=== PATIENT | female | born 1955 | race Caucasian/White ===

== ENCOUNTER → 2017-06-11 | Outpatient (CLI) | payer OTHER, SELFPAY ==
[~2017-06-11] MED LIST: ADULT LOW DOSE81 MG PO; CENTRUM SILVER1 EAC1 PO; CIPROFLOXACIN500 M1 PO; CLARITIN10 MG PO; FIORINAL CAPSUL1 CA1 PO; FLEXERIL PO; IBUPROFEN 600600 M1 PO; LOVENOX SUBQ; LYRICA100 MG PO; MS CONTIN15 MG PO; NORCO 5-325 TA1 EACH PO; OXAYDO7.5 MG PO; OXYCODONE HCL15 MG PO; PERCOCET 7.5-31 EAC1 PO; PERCOCET 7.5-31 EACH PO; PHENAZOPYRIDIN200 M2 PO; PRINIVIL; PRINZIDE 20-251 EACH PO; PYRIDIUM200 MG PO; SYNTHROID25 MCG PO; VIACTIV CAPLET1 EACH PO; VITAMIN B-121000 MCG PO; ZIAC; ZIAC 10-6.25 M1 EACH PO; ZOCOR40 MG PO; [UNRECOGNIZED DRUG - OTHER] PO
--- NOTE | 2017-06-14 15:31 | S ---
[address] [address] SURGICAL PATH RPT PROCEDURE Name: AMBAR SMITHMAITE Kwon [id number] Admission: 06/11/17 Date of : 55 Discharge: Report #: [id number] Path Case #: [id number] PATHOLOGY REPORT COLLECTION DATE: 06/11/2017 RECEIVED DATE: 06/11/2017 SUBMITTING PHYS: Dr. Zbigniew Tariq OTHER PHYS: Dr. Earnest Hopper SPECIMEN(S) RECEIVED: A.Left breast stereotactic biopsy for calcifications * * * * * * * * * * * * FINAL DIAGNOSIS: Left breast calcifications, stereotactic biopsy: - Benign breast tissue with usual ductal epithelial hyperplasia, mild chronic inflammation and coarse calcifications, negative for atypia. - See comment. COMMENT: Reviewed with Dr. Denisse Huff who agrees with the diagnosis. (CLARISSA:mm; 06/14/2017) PATHOLOGIST: David Andrew M.D. REPORT ELECTRONICALLY SIGNED BY: Davdi Andrew M.D. DATE/TIME: 06/14/2017 15:30 * * * * * * * * * * * * GROSS PATHOLOGY: Received in formalin labeled "Vanessa Smith," and additionally labeled on the requisition as, "left breast stereotactic biopsy for calcifications". Received are multiple needle cores of yellow-ferro fibrofatty tissue measuring 3.2 x 2.8 x 0.5 cm in aggregate dimensions. Also received is a plastic cassette containing multiple cores of yellow-ferro fibrofatty tissue measuring 2.5 x 2.4 x 0.5 cm in aggregate dimensions. The tissue in the cassette is transferred to cassette A1, and the remaining tissue is submitted in its entirety in cassette A2 and A3. The cold ischemic time is 3 minutes. The total formalin fixation time is 13 hours and 7 minutes. (CAA; 06/11/2017) CLINICAL HISTORY: Left breast stereotactic biopsy for calcifications INITIAL CPT CODE(S): [place] [address] SURGICAL PATH RPT PROCEDURE Name: VANESSA SMITH Room: [facility]#: [id number] Admission: 06/11/17 Date of : 55 Discharge: Report #: [id number] Path Case #: [id number] A; [id number] Professional services performed by [facility] at [address] [address] Technical services performed by [facility] at [address] [place] [address], [address], [place] [address]. [facility] [address] [place] [address] PHONE: [phone] DIRECTOR: Chris Ying M.D. * * * END OF REPORT * * *
== END | disposition home or self-care (01) ==
LOC: M.RAD 08:00
DX: N60.92 Unspecified benign mammary dysplasia of left breast (principal); Z79.82 Long term (current) use of aspirin; Z79.899 Other long term (current) drug therapy; Z79.891 Long term (current) use of opiate analgesic

== ENCOUNTER → 2017-07-30 | Outpatient (CLI) | payer OTHER ==
[2017-07-30 13:18] LABS: URINE BILIRUBIN NEGATIVE (Negative); URINE BLOOD NEGATIVE (Negative); URINE CLARITY CLEAR; URINE COLOR YELLOW; URINE GLUCOSE-RANDOM NEGATIVE (Negative); URINE KETONES NEGATIVE (Negative); URINE LEUKOCYTES-REFLEX NEGATIVE (Negative); URINE NITRITE-REFLEX NEGATIVE (Negative); URINE PROTEIN NEGATIVE (Negative); URINE SPECIFIC GRAVITY >= 1.030 (1.005-1.030); URINE UROBILINOGEN 0.2 E.U./dl (0.2-1.0)
== END ==
LOC: M.LAB 12:54
PROVIDERS: Obstetrics & Gynecology Gynecologic Oncology
DX: R30.0 Dysuria (principal)

== ENCOUNTER → 2017-08-03 | Outpatient (CLI) | payer OTHER, SELFPAY ==
--- NOTE | 2017-08-18 14:36 | PAINCON ---
[address] [address] PAIN MANAGEMENT CONSULTATION Name: LUISVANESSA E Room: [facility] RADHA HongErnst#: [id number] Admission: 08/03/17 Attend Phys: Mackenzie Rob MD Discharge: Date of : 55 Report #: [id number] THIS REPORT FOR: //name// CC: Guy Rob DATE OF SERVICE: 08/03/2017 HISTORY OF PRESENT ILLNESS: The patient is a 61-year-old female, who has been seen in the pain clinic. The patient is a new patient to me. She was followed by Dr. Zbigniew Bruner. She has also in the past seen Dr. Cliff Marcus. She has a long history of pain in low back as well as pain in her left knee. At this juncture, she has continued pain in the knee as well as low back area. She has had lumbar radiculopathy in the past. At this point, she is not having significant lumbar radicular pain. She finds that use of opioid medications of morphine and Percocet continued to be helpful. She still remains gainfully employed. Use of these medications and able her to continue to work. She notes that the pain in the low back, left knee and abdominal area are problematic. She recently had surgery in the abdominal area. She has a history of endometriosis. She had surgery by her ANODIZER. It was found that she has grade 1 cancer. She underwent a total abdominal hysterectomy and bilateral salpingo-oophorectomy and has been staged as 1A. She does need to have her knee replaced, but does not feel that she can have it done at this juncture. She is unable to take time off from work. The patient's has been recently hospitalized. He is a fabian. He ____ lion hunting. He noted some shortness of breath, epigastric pain and some vomiting. He returned home. He still had some chest pain and discomfort. He went to his primary. He was evaluated. 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 He underwent stent placement. This has caused her some consternation as well. ALLERGIES: No known drug allergies. CURRENT MEDICATIONS: Reviewed include aspirin 81 mg, Fiorinal 1 tab p.o. p.r.n., Ziac 10/6.25 mg once daily, calcium carbonate 1 tab daily, ibuprofen 600 mg t.i.d., Synthroid 25 mcg per day, lisinopril/hydrochlorothiazide 20/25 once daily, Loratadine 10 mg daily, MS Contin 15 mg t.i.d., oxycodone 7.5 mg q.i.d., simvastatin 40 mg daily, and multivitamin tablet daily. PAST MEDICAL HISTORY: 1. Hypertension. 2. Seizure disorder. 3. Hypercholesterolemia. 4. Degenerative joint disease involving the left knee, [place] [address] PAIN MANAGEMENT CONSULTATION Name: VANESSA SMITH Room: [facility] RADHA Reyna#: [id number] Admission: 08/03/17 Attend Phys: Mackenzie Rob MD Discharge: Date of : 55 Report #: [id number] x 2. 5. History of nephrolithiasis. 6. Recent surgery because of endometrial cancer, stage 1A. PAST SURGICAL HISTORY: 1. Knee surgery x 2 on the left side. 2. Wrist surgery. 3. Bilateral foot surgery. 4. Recent laparoscopic approach to the abdomen with conversion to a vertical incision for endometrial cancer. 5. Biopsy. SOCIAL HISTORY: The patient denies use of tobacco, denies use of IV drugs. She continues to work. REVIEW OF SYSTEMS: Questionnaire indicates low back pain, pain in the left knee, hypertension, hyperlipidemia with chronic pain. Other review of systems and 14 points were generally unremarkable. Pain impact score 35/70 indicating interference of daily activities secondary to pain clinic. PAIN CLINIC ASSESSMENT: 1. History of osteoarthritis involving the left knee. 2. Height 5 feet 5 inches, weight 267 pounds, BMI is 44. 3. VITAL SIGNS: Blood pressure 138/78, heart rate 78, respiratory rate 16, room air saturation is 90, and temperature 97.9. 4. Pain intensity 5/10. 5. Fall risk. The patient has not fallen in the last 3 months. 6. Blood thinner. The patient is not on a blood thinner 7. History of hypertension. The patient is being treated for hypertension. 8. Opioid greater than 6 months. The patient has signed a contract with the Pain Clinic and gets her opioid medication from only one source. 9. Risk assessment tool. 10. Functional assessment tool rated as 35/70. 11. Recreational drug use. The patient denies use of recreational drugs. Has had a recent drug testing on 05/10/2007 which showed positive findings of oxycodone and morphine, which are her current medications. 12. Tobacco: The patient denies use of tobacco. 13. Alcohol: The patient denies use of alcohol. PHYSICAL EXAMINATION: GENERAL: The patient is a well-developed obese white female, appears her stated age. ORIENTATION: The patient is alert and oriented x 3. AFFECT: Affect appears appropriate. HEENT: Normocephalic and atraumatic. Extraocular eye muscles present. The patient does have a disconjugate gaze with the left eye being the most [facility] [address] [place] [address] PAIN MANAGEMENT CONSULTATION Name: LUISVANESSA E Room: [facility]#: [id number] Admission: 08/03/17 Attend Phys: Mackenzie Rob MD Discharge: Date of : 55 Report #: [id number] functional. NECK: Without adenopathy or JVD. CHEST: Major muscle groups in the upper extremity are judged to be 5/5 for private sector executive strength and muscle strength. Deep tendon reflexes are +2 at the biceps bilaterally and trace at the brachioradialis and triceps. The patient's abdomen is protuberant. There are well healed scars. Five incision sites on the abdomen and a midline scar approximately 7 inches in the area of below the umbilicus. MUSCULOSKELETAL: The patient's alignment appears without significant kyphosis, scoliosis or lordosis. Lumbar flexion to 45 degrees that cause some discomfort with increased pain and discomfort in the left knee. The patient has some tenderness in the left sciatic outflow tract. Has had lumbar radiculopathy in the L4-L5 distribution. This is not problematic at this juncture. Has some pain and discomfort in the left knee with increased discomfort with flexion and extension of the knee area. Major muscle groups in the lower extremity judged as 5/5. Difficult to appreciate patellar knee flex on the left given the patient has some soreness in that area. Difficult to appreciate on the right ankle reflex is difficult to appreciate. Has tenderness over the left paraspinous musculature at the L4-L5, L5-S1 areas. Ankle clonus negative. ASSESSMENT: 1. Chronic lumbar pain/chronic pain. 2. Displacement of lumbar intervertebral disk with radiculopathy history. 3. Lumbosacral spondylosis with history of radiculopathy. 4. Morbid obesity. 5. Opioid dependence/treatment with complex medication management. 6. Chronic intractable pain. RECOMMENDATIONS: We discussed the treatment options with the patient. At this juncture, it appears that she is taking her medication as prescribed. She is not having any problems with her medications. She finds that they continue to be helpful. She is gainfully employed; without them she would not be able to stay as active. She states that she is thinking clearly. They are not having any untoward complications on her activities of daily living. She keeps her medications in a guarded area. She had a drug screen which showed that she did have appropriate medications in her system and is taking them as prescribed. The patient will be provided an additional 3 months of pain medication. She has some concerns regarding her . He recently had a myocardial infarct. She feels that this is per some additional strain on her at this juncture because of this. We have discussed the use of opioid medications. We discussed the problems of opioid medications in the news at this juncture. We recommend and explained to the patient that she could only get her medications at one area. We will provide her medications. She will call us if she has any problems with her medications. She feels that they may be making some changes in her insurance company regarding her morphine. She will call us [place] [address] PAIN MANAGEMENT CONSULTATION Name: VANESSA SMITH Room: [facility]#: [id number] Admission: 08/03/17 Attend Phys: Mackenzie Rob MD Discharge: Date of : 55 Report #: [id number] new requirements. We would like to thank you for letting us participate in her care. We hope she continues to improve. <ELECTRONICALLY SIGNED> By: Mackenzie Rob MD 08/18/17 1436 1003 1739N. Marco Rob MD /nt
== END ==
LOC: M.PC 08-02 08:00
DX: M51.16 Intervertebral disc disorders with radiculopathy, lumbar region (principal); M47.27 Other spondylosis with radiculopathy, lumbosacral region; I10 Essential (primary) hypertension; E78.00 Pure hypercholesterolemia, unspecified; F11.90 Opioid use, unspecified, uncomplicated; Z79.899 Other long term (current) drug therapy

== ENCOUNTER → 2017-10-26 | Outpatient (CLI) | payer OTHER, SELFPAY ==
--- NOTE | 2017-11-17 14:05 | PAINCON ---
[address] [address] PAIN MANAGEMENT CONSULTATION Name: LUISVANESSA E Room: [facility] EVAN GelyErnst#: [id number] Admission: 10/26/17 Attend Phys: Mackenzie Rob MD Discharge: Date of : 55 Report #: [id number] THIS REPORT FOR: //name// CC: Guy Rob DATE OF SERVICE: 10/26/2017 FOLLOWUP HISTORY: Low back pain, left and right knee pain and pain from the abdominal incision from 07/19/2017. The patient is a 61-year-old female who has been followed in the Pain Clinic because of chronic pain involving her knees. She also has a history of lumbar radiculopathy. She has been treated with opioid medications to help control her pain. She finds that the opioid medications, Morphine and Percocet continued to be helpful. She remains gainfully employed. Feels that her medications enable her to stay employed. Has pain in the low back, left knee as well as continues to have some abdominal pain. As you may recall, she had some abdominal surgery in July of this year. This was secondary to endometriosis. Grade 1 cancer was found. Since she has had a total abdominal hysterectomy and bilateral salpingo-oophorectomy, she continues to heal. She is contemplating the possibility of knee surgery. Unfortunately, at this time, she is unable to take off from work to have this done. Her is getting better. As you may recall, he was found to have coronary artery disease while hunting. Had 3 vessels 1, which was 99% blocked. Has been stented. ALLERGIES: No known drug allergies. CURRENT MEDICATIONS: Aspirin 81 mg, Fiorinal 1 tab p.o. p.r.n., Ziac 10/625 one daily, calcium carbonate 1 tab daily, ibuprofen 600 mg t.i.d., Synthroid 25 mcg, lisinopril/hydrochlorothiazide 20/25 once daily, loratadine 10 mg daily, MS Contin 15 mg t.i.d., oxycodone 7.5 mg q.i.d., simvastatin 40 mg daily, multivitamin tablet daily. PAIN CLINIC ASSESSMENT: 1. History of osteoarthritis involving her left knee. 2. Height 5 feet 5 inches, weight 271 pounds, BMI is 45. 3. Vital signs: Blood pressure 146/29, heart rate 58, respiratory rate 16, room air saturation 97%, temperature 98.3. 4. Pain intensity 5/10. 5. Fall risk. The patient has not fallen in the last 3 months. 6. Blood thinner. The patient is not on a blood thinning medication. 7. History of hypertension. The patient [place] [address] PAIN MANAGEMENT CONSULTATION Name: VANESSA SMITH Room: [facility]#: [id number] Admission: 10/26/17 Attend Phys: Mackenzie Rob MD Discharge: Date of : 55 Report #: [id number] 8. Opioids greater than 6 months. The patient has a contract signed with Pain Clinic, gets her medication from only one source. 9. Risk assessment tool. 10. Functional assessment tool . 11. Recreational drug use. The patient denies use of recreational drug use. 12. Tobacco: The patient denies use of tobacco. 13. Alcohol: The patient denies use of alcoholic beverages. PHYSICAL EXAMINATION: GENERAL: The patient is a well-developed, obese female. She appears her stated age. Orientation, she is alert and oriented x 3. Affect appears appropriate. Speech is fluent. HEENT: Normocephalic, atraumatic. Extraocular eye muscles intact. Sclerae not injected. Hearing within normal limits. Mucous membranes are moist. NECK: Without adenopathy or JVD. CHEST: Major muscle in the upper extremity judged to be 5/5 for turn operator strength and muscle strength. ABDOMEN: The patient's abdomen is protuberant. Healing/well healed scars, 5 incision sites all in the abdomen and a midline scar approximately 7 cm in the area below the umbilicus. MUSCULOSKELETAL: The patient's alignment appears without significant kyphosis, scoliosis or lordosis. Lumbar flexion, extension caused some discomfort in the low back area as well as in the left knee. The patient has some left sciatic outflow tenderness. The patient has some difficulty within the left patellar area with flexion of her knee. Soreness is noted. ASSESSMENT: 1. Chronic lumbar pain. 2. Chronic knee pain. 3. Displacement of lumbar intervertebral disk with radiculopathy history. 4. Lumbosacral spondylosis with history of radiculopathy. 5. Morbid obesity. 6. Opioid dependence/treatment with complex medication management. 7. Chronic intractable pain. RECOMMENDATIONS: We discussed treatment options with the patient. Risks and benefits of continued use of opioid medications were discussed. The patient has been watching the media. She is aware that opioids can be addictive. She is aware that these medications can become less effective over time secondary to tolerance. Overall, she feels that things are going reasonably well. Feels that the Percocet, morphine are beneficial and enable her to stay gainfully employed. Takes her medication as prescribed. Keeps her medications in a controlled environment. She would like to have her medications renewed at this juncture. We will renew her medications and a script for oxycodone 7.5 mg 1 p.o. q.i.d. has been written as well as for morphine 15 mg 1 [place] [address] PAIN MANAGEMENT CONSULTATION Name: VANESSA SMITH Room: [facility]#: [id number] Admission: 10/26/17 Attend Phys: Mackenzie Rob MD Discharge: Date of : 55 Report #: [id number] been written. We would like to thank you for letting us participate in her care. We hope she continues to improve. <ELECTRONICALLY SIGNED> By: Mackenzie Rob MD 11/17/17 1405 0910 1208N. Marco Rob MD /nt
== END ==
LOC: M.PC 02:15
DX: M47.27 Other spondylosis with radiculopathy, lumbosacral region (principal); M51.16 Intervertebral disc disorders with radiculopathy, lumbar region; G89.4 Chronic pain syndrome; M54.5 Low back pain; E66.01 Morbid (severe) obesity due to excess calories; M25.562 Pain in left knee; M25.561 Pain in right knee; F11.20 Opioid dependence, uncomplicated; Z79.899 Other long term (current) drug therapy

== ENCOUNTER → 2018-01-18 | Outpatient (CLI) | payer OTHER ==
--- NOTE | 2018-01-21 08:37 | PAINCON ---
[address] [address] PAIN MANAGEMENT CONSULTATION Name: VANESSA SMITH Room: [facility] GelyErnst#: [id number] Admission: 01/18/18 Attend Phys: Mackenzie Rob MD Discharge: Date of : 55 Report #: [id number] THIS REPORT FOR: //name// CC: Guy Rob DATE OF SERVICE: 01/18/2018 CHIEF COMPLAINT: Pain in the low back, knees and in the area of the abdominal incision. FOLLOWUP HISTORY: The patient is a 62-year-old female who has been followed in the pain clinic because of pain and discomfort. She has pain in her low back, knees and continues to have some discomfort since the surgery in 2018. She had surgery on 07/19/2017. She feels that the back pain is somewhat under control. She is no longer having as much abdominal pain. Her left knee continues to be painful. She places ice on the left knee. She finds that this is beneficial. Rates her pain as a 5/10. Feels that her oxycodone 7.5 is helpful. Finds that morphine 15 mg q.8h. is helpful as well. She has had no complication from the medication. The patient has noted a lump in her right neck area. As you recall, she had stage IA uterine cancer. She has noticed a lump about the size of a 25-cent piece which is easily movable on the right side of her neck. It is not painful. She is not sure how long it has been there. She has talked with her primary and is about to have it evaluated. Possibility of a biopsy exist. The patient has another complication. Her has had a history of cardiac disease. He underwent a stent placement last year. He had an NC diagnosed at that time. Recently, he started noticing some numbness and tingling in his left arm. He was taken to the hospital last night. He is in the hospital at this juncture being worked up. The patient does note some increased stress because of all of these problems. Her has a 3-vessel problem. ALLERGIES: No known drug allergies. CURRENT MEDICATIONS: Aspirin 81 mg, Fiorinal 1 tablet p.o. p.r.n., Ziac 10/625, calcium carbonate 1 tablet, ibuprofen 600 mg t.i.d., Synthroid 25 mcg, lisinopril/hydrochlorothiazide 20/25 once daily, Loratadine 10 mg daily, MS Contin 15 mg t.i.d., oxycodone 7.5 mg q.i.d., simvastatin 40 mg daily, multivitamin tablet daily. PAIN CLINIC ASSESSMENT: 1. The patient has a history of osteoarthritis involving her left knee. 2. Height 5 feet 5 inches, weight 269 pounds, BMI is 44. 3. Vital signs: Blood pressure 178/97, heart rate 62, respiratory rate 16, room air saturation 95%, temperature 98.4. 4. Pain intensity 5/10. [place] [address] PAIN MANAGEMENT CONSULTATION Name: VANESSA SMITH [facility] [id number] Admission: 01/18/18 Attend Phys: Mackenzie Rob MD Discharge: Date of : 55 Report #: [id number] 5. Fall risk. The patient has not fallen in the last 3 months. 6. Blood thinner. The patient is on her blood thinning medication. 7. Hypertension. The patient is being treated for hypertension. 8. Opioid greater than 6 weeks. The patient is to receive her medications through the pain clinic. She receives the opioids from one source. 9. Risk assessment tool. 10. Functional assessment tool . 11. Recreational drug use. The patient denies use of recreational drugs. 12. Tobacco: The patient denies use of tobacco. 13. Alcohol: The patient denies use of alcoholic beverages. PHYSICAL EXAMINATION: GENERAL: The patient is a well-developed, obese female, appears her stated age. She is alert and oriented x 3. Her affect is appropriate in spite of her problems. Speech is fluent. HEENT: Normocephalic, atraumatic. Extraocular muscles show the right eye with a disconjugate gaze. Sclerae are not injected. Hearing is within normal limits. Mucous membranes are moist. NECK: With adenopathy on the right side without JVD. CHEST: Muscles in the upper extremity judged to be 5/5 with limerock tower loader strength. ABDOMEN: The patient's abdomen is protuberant. Well healing scar. MUSCULOSKELETAL: Without significant kyphosis, scoliosis or lordosis. Lumbar flexion, extension within normal limits. The patient notes pain and discomfort in her left knee. The patient has a left sciatic outflow tender area. Has some pain and discomfort in the area of the left patellar with flexion of her knee. Soreness is noted. ASSESSMENT: 1. Chronic lumbar pain. 2. Chronic knee pain. 3. Note of a freely movable mass in the right neck area, nontender - will be evaluated by primary. 4. Morbid obesity. 5. Lumbosacral spondylosis with history of radiculopathy. 6. Opioid dependence, treated with complex medical management. 7. Chronic intractable pain. RECOMMENDATIONS: We discussed treatment options with the patient. We will continue with her current medical regimen. She will follow up with her primary in regards to the lump in the right side of her neck. She will continue with her opioid medications. She and I have talked about use of opioid medications and their effectiveness over time, which can diminish. Overall, she feels that things are going reasonably well, would like to continue her medications and has had no problems with them. Keeps her medications in a guarded area. A script for her medications have been rewritten. She [place] [address] PAIN MANAGEMENT CONSULTATION Name: LUISVANESSA E Room: [facility]#: [id number] Admission: 01/18/18 Attend Phys: Mackenzie Rob MD Discharge: Date of : 55 Report #: [id number] We would like to thank you for letting us participate in her care. We hope she continues to improve. <ELECTRONICALLY SIGNED> By: Mackenzie Rob MD 01/21/18 0837 0926 1738N. Marco Rob MD /nt
== END ==
LOC: M.PC 04:47
DX: M47.27 Other spondylosis with radiculopathy, lumbosacral region (principal); E66.01 Morbid (severe) obesity due to excess calories; G89.4 Chronic pain syndrome; M25.561 Pain in right knee; F11.20 Opioid dependence, uncomplicated; Z79.899 Other long term (current) drug therapy

== ENCOUNTER → 2018-04-12 | Outpatient (CLI) | payer OTHER ==
--- NOTE | 2018-04-20 16:38 | PAINCON ---
[address] [address] PAIN MANAGEMENT CONSULTATION Name: LUISVANESSA E Room: [facility] RADHA HongErnst#: [id number] Admission: 04/12/18 Attend Phys: Mackenzie Rob MD Discharge: Date of : 55 Report #: [id number] THIS REPORT FOR: //name// CC: Guy Rob DATE OF SERVICE: 04/12/2018 FOLLOWUP HISTORY: "The knot on my right neck was squamous cell cancer, I am going to undergo chemotherapy and radiation." FOLLOWUP HISTORY: The patient is a 62-year-old female who has been followed in the Pain Clinic because of chronic pain. She has pain in her low back. She has knee pain. She notes that she has had some discomfort since her surgery in 2018. She was out walking in the area. She was on a porsche pathway. She feels like she twisted her knee. She is having pain and discomfort, which has increased. She is walking with limp at this juncture. The patient has been found to have squamous cell carcinoma. She has undergone a number of evaluations, which consisted of CT, MRI, bronchial scoping and other exams in an effort to find the original source of cancer. She states that they have not been able to find a primary. She describes it as an occult primary. She is somewhat disconcerted that she has had her second cancer within a couple of years. She feels that the oxycodone medication is helpful. She feels that morphine is helpful. She is taking her medication as prescribed. She states that she will be undergoing chemotherapy with cisplatin and following that she will undergo 33 treatments of radiation to the affected area. As you may recall, she has had stage 1A uterine cancer. As you may recall as well, her has a history of cardiac disease. He has undergone stent placements. He had an WA and was diagnosed with 3-vessel disease. ALLERGIES: No known drug allergies. CURRENT MEDICATIONS: Aspirin 81 mg, Fiorinal 1 tablet p.o. p.r.n., Ziac 10/625, calcium carbonate 1 tablet, ibuprofen 600 mg t.i.d., Synthroid 25 mcg, lisinopril/hydrochlorothiazide 20/25 daily, loratadine 10 mg daily, morphine/MS Contin 15 mg t.i.d., oxycodone 7.5 mg q.i.d., simvastatin 40 mg daily, multivitamin daily. PAIN CLINIC ASSESSMENT/PQRS: 1. The patient has a history of osteoarthritis involving her left knee. She recently twisted her right knee and is having pain. The patient is not being treated for rheumatoid arthritis. 2. Height 5 feet 5 inches, weight 269 pounds, BMI is 44.7. [place] [address] PAIN MANAGEMENT CONSULTATION Name: VANESSA SMITH [id number] Admission: 04/12/18 Attend Phys: Mackenzie Rob MD Discharge: Date of : 55 Report #: [id number] 3. Vital signs: Blood pressure 148/83, heart rate 56, respiratory rate 16, room air saturation is 96%, temperature 97.6. 4. Pain intensity: 5/10. 5. Fall risk: The patient has not fallen in the last 3 months. She twisted her ankle while walking with a cane about 3 weeks ago. 6. Blood thinner: The patient is not on a blood thinning medication. 7. Hypertension: The patient is being treated for hypertension. 8. Opioids greater than 6 weeks: The patient receives her medication from one source, the [facility]. 9. Risk assessment tool: Low for opioid use. 10. Functional assessment tool: 35/70. 11. Recreational drug use: The patient denies recreational drugs. 12. Tobacco: The patient denies use of tobacco. 13. Alcohol: The patient denies use of alcoholic beverages. PHYSICAL EXAMINATION: GENERAL: The patient is a well-developed, well-nourished, obese white female. She appears her stated age. She is alert and oriented x 3. Her affect is appropriate. Speech is fluent. HEENT: Normocephalic, atraumatic. Extraocular eye muscles shows that the right eye has a disconjugate gaze. Sclerae nonicteric. Hearing is within normal limits. Mucous membranes are moist. NECK: Without adenopathy. She did have a nodule on the right side, which has been determined to be squamous cell cancer. CHEST: Clear to auscultation, without rales or rhonchi. The patient is somewhat congested and coughing. ABDOMEN: Nontender, protuberant. Well-healed scars. MUSCULOSKELETAL: Without significant scoliosis, kyphosis, or lordosis. Lumbar extension within normal limits. Muscle strength in the lower extremities is judged to be 5/5 on the left side and 4+/5 on the right side. The patient walks with an antalgic gait because of pain and discomfort on the right side. She notes some soreness in the lateral side of her right knee in the area of the lateral collateral ligament. ASSESSMENT: 1. Chronic lumbar pain. 2. Recent finding of squamous cell carcinoma, right side of neck. 3. History of stage 1A uterine cancer, treated. 4. Chronic knee pain. 5. Morbid obesity. 6. Lumbosacral spondylosis with history of radiculopathy. 7. Opioid dependence, treated with complex medical management to help control pain. 8. Chronic intractable pain. RECOMMENDATIONS: We discussed treatment options with [place] [address] PAIN MANAGEMENT CONSULTATION Name: VANESSA SMITH [facility] [id number] Admission: 04/12/18 Attend Phys: Mackenzie Rob MD Discharge: Date of : 55 Report #: [id number] continue with her current medications. As you can imagine, she is somewhat disheartened to find that she has a second cancer within 2 years. It involves the right neck. She is going to undergo treatment with radiation and chemotherapy. The patient is scheduled to go today to have a PICC line placed. She will call us if she has any concerns. We would like to thank you for letting us participate in her care. We hope she continues to improve. Hopefully, her cancer treatment goes successful and proceeds without complication. <ELECTRONICALLY SIGNED> By: Mackenzie Rob MD 04/20/18 [id number] [id number]. Marco Rob MD /nt
== END ==
LOC: M.PC 08:00
DX: M47.27 Other spondylosis with radiculopathy, lumbosacral region (principal); G89.4 Chronic pain syndrome; E66.09 Other obesity due to excess calories; M25.569 Pain in unspecified knee; C44.42 Squamous cell carcinoma of skin of scalp and neck; Z79.891 Long term (current) use of opiate analgesic

== ENCOUNTER → 2018-07-05 | Outpatient (CLI) | payer OTHER ==
[~2018-07-05] MED LIST changes: +BACTRIM DS TAB1 EACH PO; +COMPAZINE10 MG PO; +ZOFRAN ODT4 MG DISSOLVE
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
== END ==
LOC: M.PC 04:52
DX: M54.5 Low back pain (principal); G89.4 Chronic pain syndrome; M25.569 Pain in unspecified knee; M47.26 Other spondylosis with radiculopathy, lumbar region; F11.20 Opioid dependence, uncomplicated; C44.92 Squamous cell carcinoma of skin, unspecified; E66.9 Obesity, unspecified; Z85.42 Personal history of malignant neoplasm of other parts of uterus

== ENCOUNTER → 2018-09-27 | Outpatient (CLI) | payer OTHER ==
[~2018-09-27] MED LIST changes: +DEPAKOTE 250MG250 M1 PO
--- NOTE | 2018-09-29 12:05 | PAINCON ---
[address] [address] PAIN MANAGEMENT CONSULTATION Name: LUISVANESSA E Room: [facility] GelyErnst#: [id number] Admission: 09/27/18 Attend Phys: Mackenzie Rob MD Discharge: Date of : 55 Report #: [id number] THIS REPORT FOR: //name// CC: Guy Rob DATE OF SERVICE: 09/27/2018 CHIEF COMPLAINT: "Here for medication renewal." HISTORY: The patient is a 62-year-old female who has been followed in the pain clinic. She has chronic pain involving her left knee. There is wpbz-[id number] involvement. As you recall, she was found to have squamous cell carcinoma involving her right neck. She has undergone treatment with chemotherapy as well as with radiation. She, at this point is cancer free. She does have a feeding tube in place. She is under speech therapy to help with swallowing. She has had some problems with her kidneys that she was taken off her diuretic. She did have some problems with her shoulder, but has been given some exercises, which have been helpful. She has had some twitching symptoms, which were similar to petit mal seizures, and has been started on Depakote. Because of the shoulder and neck pain she has undergone physical therapy and found that this has been beneficial. She has returned today for renewal of her medications. She feels that her pain is about 50% improved with use of medications. Rates her pain as a 5/10. ALLERGIES: No known drug allergies. CURRENT MEDICATIONS: Aspirin 81 mg, Fiorinal tablets 1 p.o. p.r.n., Ziac 10 mg/625, calcium carbonate tablets, ibuprofen has been used in the past, Synthroid 25 mcg, lisinopril/hydrochlorothiazide has been changed, loratadine 10 mg, morphine 15 mg t.i.d., oxycodone 7.5 mg q.i.d., simvastatin 40 mg, multivitamins, Bactrim, Zofran, Compazine, and Depakote. PAIN CLINIC ASSESSMENT/PQRS: 1. The patient has history of left knee osteoarthritis. She has not been treated for rheumatoid arthritis. 2. Height 5 feet 5 inches, weight 239 pounds, BMI is 40.0. 3. Vital signs: Blood pressure 157/92, heart rate 78, respiratory rate 16, room air saturation 97%. Temperature 98.2. 4. Pain intensity: 5/10. 5. Blood thinner. The patient is not on a blood thinning medication. 6. Hypertension. The patient is being treated for hypertension. 7. Opioid greater than 6 weeks. The patient receives her medications [facility]. 8. Risk assessment tool, low for opioid use. 9. Functional assessment tool 35/70. [place] [address] PAIN MANAGEMENT CONSULTATION Name: VANESSA SMITH Room: [facility]#: [id number] Admission: 09/27/18 Attend Phys: Mackenzie Rob MD Discharge: Date of : 55 Report #: [id number] 10. Recreational drug use. The patient denies use of recreational drugs. 11. Tobacco: The patient denies use of tobacco. 12. Alcohol: The patient denies use of alcoholic beverages. PHYSICAL EXAMINATION: GENERAL: The patient is well-developed, well-nourished white female. She is alert and oriented x 3. She does appear to be doing reasonably well. HEENT: Normocephalic, atraumatic. Extraocular eye muscles shows the patient does has a disconjugate gaze. Sclerae nonicteric. Hearing is within normal limits. Mucous membranes are moist. The patient has some decreased saliva secondary to radiation. NECK: Right adenopathy, treated. CHEST: Clear to auscultation without rales. ABDOMEN: Nontender. The patient does have a feeding tube in place. EXTREMITIES: Upper extremity; the patient's upper extremity muscle strength is judged to be 5/5 and the lower extremity muscle strength is judged to be 5-/5. The patient has pain in the left knee. IMPRESSION: 1. Chronic left knee pain, bytq-go-rybv. 2. Squamous cell carcinoma, status post radiation chemotherapy, cisplatin 35 radiation treatments. 3. History of stage 2, 1A uterine cancer, treated. 4. Chronic knee pain. 5. Morbid obesity. 6. Lumbar spondylosis with history of radiculopathy. 7. Opioid dependence, treated with complex medical management help control pain. 8. Chronic intractable pain. RECOMMENDATIONS: We discussed treatment options with the patient. At this juncture, she feels her medications are working reasonably well. She would like to continue with their use. She does not having any untoward side effects. A script for oxycodone 7.5 mg 1 p.o. q.i.d. has been rewritten. The patient will also continue with morphine 15 mg 1 p.o. t.i.d. We would like to thank you for letting us participate in her care. We hope she continues to improve. <ELECTRONICALLY SIGNED> By: Mackenzie Rob MD 09/29/18 1205 [id number]. Marco Rob MD /kt
== END ==
LOC: M.PC 04:54
DX: M17.12 Unilateral primary osteoarthritis, left knee (principal); G89.29 Other chronic pain; M47.26 Other spondylosis with radiculopathy, lumbar region; I10 Essential (primary) hypertension; E66.8 Other obesity; Z85.89 Personal history of malignant neoplasm of other organs and systems; Z92.3 Personal history of irradiation; Z79.82 Long term (current) use of aspirin; Z79.899 Other long term (current) drug therapy; Z79.891 Long term (current) use of opiate analgesic; Z68.41 Body mass index [BMI] 40.0-44.9, adult

== ENCOUNTER → 2018-10-13 | Outpatient (CLI) | payer OTHER | LOC: M.RAD 12:52 | DX: Z12.31 Encounter for screening mammogram for malignant neoplasm of breast (principal) ==

== ENCOUNTER → 2018-12-20 | Outpatient (CLI) | payer OTHER ==
--- NOTE | ~2018-12-20 | PAINCON ---
[address] [address] PAIN MANAGEMENT CONSULTATION Name: VANESSA SMITH Room: [facility] RADHA Reyna#: [id number] Admission: 12/20/18 Attend Phys: Mackenzie Rob MD Discharge: Date of : 55 Report #: [id number] THIS REPORT FOR: //name// CC: Guy Rob DATE OF SERVICE: 12/20/2018 CHIEF COMPLAINT: Here for medication management and continued right shoulder pain. HISTORY: The patient is a 62-year-old female who has been followed in the pain clinic because of chronic pain. She has pain with ntfj-hf-vqab involvement in her knees. This is on the left side and has been chronic. She has some low back discomfort as well. Has some discomfort in her left knee as well. As you may recall, was found to have squamous cell carcinoma. This involves her right neck. She has undergone chemotherapy and radiation. She has been cancer free at this point. 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 This involves her neck and causes her to have some significant swelling in the lower portion of her neck. She states it is less when she wakes up. She was involved with a therapist who is massaging and doing all that they can to decrease this problem. She wears a compression vest as well as a head piece. They are trying to find out the best way to control this discomfort. She feels that her muscles are tight. This particularly on the right side. She has continued with physical therapy. She feels that is helpful. She is going to go to physical therapy. She is being treated by her occupational therapist. She has been monitoring her blood pressure. Because of dehydration and hospitalization, she was taken off her medications earlier this year. She does take it on occasion. 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 She is on Depakote. She feels overall that pain is about 50% improved with her current medical regimen. ALLERGIES: No known drug allergies. CURRENT MEDICATIONS: Aspirin 81 mg, Fiorinal tablets 1 p.o. p.r.n., Ziac 10 mg/625, calcium carbonate tablets, ibuprofen p.o. has been used in the past, Synthroid 25 mcg, lisinopril/hydrochlorothiazide has been used in the past, loratadine 10 mg, morphine 15 mg t.i.d., oxycodone 7.5 mg q.i.d., simvastatin 40 mg, multivitamins, Bactrim, Zofran, Compazine, Depakote. PAIN CLINIC ASSESSMENT/PQRS: 1. The patient has a history of left knee osteoarthritis. [id number]-[id number]. She is not being treated for rheumatoid arthritis. 2. Height 5 feet 5 inches, weight 228 pounds, BMI is 38. 3. VITAL SIGNS: Blood pressure 160/79, heart rate 63, respiratory rate 16, room air saturation 97%, temperature 98.4. 4. Pain intensity is 5/10. [place] [address] PAIN MANAGEMENT CONSULTATION Name: LUISVANESSA E Room: [facility]#: [id number] Admission: 12/20/18 Attend Phys: Mackenzie Rob MD Discharge: Date of : 55 Report #: [id number] 5. Fall history: The patient has not fallen in the last 3 months. 6. Blood thinner. The patient is not on a blood thinning medication. 7. Opioid greater than 6 weeks. The patient [facility]. 8. Risk assessment tool, low for opioid use. 9. Functional assessment tool . 10. Recreational drug use. The patient denies. 11. Tobacco: The patient denies use of tobacco. 12. Alcohol: The patient denies use of alcoholic beverages. PHYSICAL EXAMINATION: GENERAL: The patient is a well-developed, well-nourished white female. She is somewhat obese. She is alert and oriented x 3. Her affect is appropriate. Speech is fluent. HEAD, EYES, EARS, NOSE, AND THROAT: Normocephalic, atraumatic. Extraocular eye muscles intact. The patient has somewhat of a disconjugate. Does note some significant swelling, which caused the production of a significant double chin. NECK: The patient notes some swelling in the area because of the lymphedema. CHEST: Clear to auscultation. EXTREMITIES: the patient has pain and discomfort in the right neck area, right shoulder. Upper extremity, the patient's muscle strength is judged to be 4+/5 on the right and 5/5 on the left. Lower extremity muscle strength judged to be 5/5 for the major muscle groups in the lower extremity. The patient has pain in her left knee as well as the right knee has some low back discomfort. IMPRESSION: 1. Chronic knee pain, gcvq-ji-pjkb. 2. Squamous cell carcinoma, status post radiation and cisplatin #35 radiation treatments -- lymphedema in the neck. 3. History of stage II 1A uterine cancer treated. 4. Chronic knee pain. 5. Morbid obesity. 6. Lumbar spondylosis with history of radiculopathy. 7. Opioid dependence. The patient is treated with complex medical management to help control her pain. 8. Chronic intractable pain. RECOMMENDATIONS: We discussed treatment options with the patient. Risks and benefits of opioid medication were discussed. They include the possibility of development of tolerance with long-term use. We have discussed the possibility of dependency. The patient does not feel these medications are being problematic at this juncture. They appeared and are helping her to live a more active life. Rates her pain about 50% improved. We will continue with her medications. A script for her medications: Morphine sulfate 15 mg 1 p.o. t.i.d. has been written as well as oxycodone 7.5 mg one p.o. every 6 [place] [address] PAIN MANAGEMENT CONSULTATION Name: VANESSA SMITH Room: [facility]#: [id number] Admission: 12/20/18 Attend Phys: Mackenzie Rbo MD Discharge: Date of : 55 Report #: [id number] of 4 tablets to have been written as well. The patient will call us if she has any concerns. Overall, things are going reasonably well. She feels are going as well as could be expected. We would like to thank you for letting us to participate in her care. We hope continue to treat her with her complex medical management given her cancer history. By: [id number] 1500N. Marco Rob MD /PMT
== END ==
LOC: M.PC 05:13
DX: Z76.0 Encounter for issue of repeat prescription (principal); M17.12 Unilateral primary osteoarthritis, left knee; E66.01 Morbid (severe) obesity due to excess calories; M47.816 Spondylosis without myelopathy or radiculopathy, lumbar region; G89.4 Chronic pain syndrome; Z79.82 Long term (current) use of aspirin; Z79.899 Other long term (current) drug therapy; Z79.891 Long term (current) use of opiate analgesic

== ENCOUNTER → 2019-03-14 | Outpatient (CLI) | payer OTHER ==
[~2019-03-14] MED LIST changes: +PRINIVIL20 MG PO; +SYNTHROID25 MC1 PO; -SYNTHROID25 MCG PO; +VITAMIN D5000 UNIT PO
--- NOTE | 2019-03-29 09:09 | PAINCON ---
[facility] [address] [place] [address] PAIN MANAGEMENT CONSULTATION Name: VANESSA SMITH Room: [facility] RADHA CarJulia#: [id number] Admission: 03/14/19 Attend Phys: Mackenzie Rob MD Discharge: Date of : 55 Report #: [id number] THIS REPORT FOR: //name// CC: Guy Rob DATE OF SERVICE: 03/14/2019 CHIEF COMPLAINT: Here for medication renewal. HISTORY: The patient is a 63-year-old female who has been followed in the pain clinic because of chronic pain. She has pain involving her right shoulder. She also has low back pain and left knee pain. The patient has been working a lot with extra activities. Her job is relocating from [place], [place] to [place]. As a result of that, constant work she has noticed a worsening of her pain. They do not have chairs in the area. Consequently standing on her feet all day have has been more problematic. She has had the feeding tube removed. This has been closing slowly. The tube was removed in November. It is finally getting to the point where it is closing. It did reopen. She is slated to see Interventional Radiology and for evaluation in the next few days. Feels that her medications of morphine and oxycodone are helpful. She was started on vitamin D, approximately 50,000 units by her physician. Feels that overall things about 50% improved with her current medical regimen. Factors that exacerbate her discomfort are sitting, standing, climbing stairs, bending, and lifting. Also, she has noticed that the new facility is cold in area. She is wearing a jacket at work. As you may recall, she has undergone treatment for squamous cell carcinoma. ALLERGIES: No known drug allergies. CURRENT MEDICATIONS: Aspirin 81 mg, Fiorinal for headaches, Depakote DR 250 mg t.i.d., ibuprofen p.r.n., Synthroid 50 mcg daily, morphine sulfate 15 mg, Zofran 4 mg p.r.n. nausea, oxycodone 7.5 mg tablets 4 times daily, Compazine 10 mg t.i.d., Bactrim-DS in the past and the feeding tube. PAIN CLINIC ASSESSMENT AND PQRS: 1. The patient has a history of left knee osteoarthritis. With pnvu-vw-ivih discomfort. She is not being treated for rheumatoid arthritis. 2. Height 5 feet 5 inches, weight 223 pounds, BMI is 37.0. 3. Vital signs: Blood pressure 186/82, heart rate is 62, respiratory rate 16, room air saturation 99%, temperature 98.5. 4. Pain intensity 6/10. 5. Fall history: The patient has not fallen in the last 3 months. 6. Blood thinner. The patient is not on a blood thinning medication. 7. Opioids greater than 6 weeks. The patient received medication from one source, [place] [address] PAIN MANAGEMENT CONSULTATION Name: AMBAR SMITHRI Cher [facility] [id number] Admission: 03/14/19 Attend Phys: Mackenzie Rob MD Discharge: Date of : 55 Report #: [id number] 8. Risk assessment tool, low for opioid use. 9. Functional assessment tool 35/. 10. Recreational drug use. The patient denies. 11. Tobacco: The patient denies use of tobacco. 12. Alcohol. The patient denies use of alcoholic beverages. PHYSICAL EXAMINATION: GENERAL: The patient is a well-developed, well-nourished white female. Appears her stated age. She is obese. She is alert and oriented x 3. Her affect is appropriate. Speech is fluent. HEENT: Normocephalic, atraumatic. Extraocular eye. Extraocular eye muscles. The patient has a disconjugate gaze. The patient has had problems with swelling and a "double chin" as a result of the radiation. This is secondary to lymphedema. CHEST: Generally clear to auscultation. The patient states that the feeding tube area has reopened. She will see the interventional radiologist in that regard. EXTREMITIES: Has some pain in the right neck area, right shoulder area Upper extremity muscle strength judged to be 4+/5 on the right and 5/5 on the left. Muscle strength in the lower extremity, 5/5 for the major muscle groups in the lower extremity. The patient has some pain in her left knee as well as the right knee. IMPRESSION: 1. Chronic knee pain with knjm-ec-ethe pain. 2. Squamous cell carcinoma, status post radiation and cisplatin, 35 radiation treatments. 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 3. History of stage 2A uterine cancer ? treated. 4. Chronic knee pain. 5. Morbid obesity. 6. Lumbar spondylosis with history of radiculopathy. 7. Opioid dependence. The patient is being treated with complex medical management to help control the pain. 8. Chronic intractable pain. RECOMMENDATIONS: We discussed treatment options with the patient. At this juncture, we will continue with her medications. She feels that the medications are helpful. We will decrease the patient's medication as she is able to tolerate it. She has been taking medications as prescribed. She is aware that opioid medications over time will become less effective secondary to development of tolerance. She is having no signs of addiction. She is [place] [address] PAIN MANAGEMENT CONSULTATION Name: VANESSA SMITH Room: [facility]#: [id number] Admission: 03/14/19 Attend Phys: Mackenzie Rob MD Discharge: Date of : 55 Report #: [id number] We would like to thank you for letting us participate in her care. We hope she continues to improve. <ELECTRONICALLY SIGNED> By: Mackenzie Rob MD 03/29/19 0909 [id number]. Marco Rob MD /nt
== END ==
LOC: M.PC 05:14
DX: Z76.0 Encounter for issue of repeat prescription (principal); M47.26 Other spondylosis with radiculopathy, lumbar region; G89.29 Other chronic pain; E66.01 Morbid (severe) obesity due to excess calories; Z79.82 Long term (current) use of aspirin; Z79.899 Other long term (current) drug therapy; Z79.891 Long term (current) use of opiate analgesic

== ENCOUNTER → 2019-06-06 | Outpatient (CLI) | payer OTHER ==
--- NOTE | ~2019-06-06 | PAINCON ---
[address] [address] PAIN MANAGEMENT CONSULTATION Name: VANESSA SMITH Room: [facility]#: [id number] Admission: 06/06/19 Attend Phys: Mackenzie Rob MD Discharge: Date of : 55 Report #: [id number] THIS REPORT FOR: //name// CC: Guy Rob The patient was seen on 06/06/[address] Marco Rob. CHIEF COMPLAINT: Right shoulder pain, low back pain and left knee pain. HISTORY OF PRESENT ILLNESS: The patient is a 63-year-old female who has been followed in the pain clinic, has pain involving a number of areas. They involve her right shoulder. She has some pain in her low back as well as in the knee area. She has relocated from [place] to [place], [place]. She does note that she continues to have some pain and discomfort. She feels that she has cold. She is following up with her primary physician regarding the possibility of thyroid problems. She has returned today for renewal of her medications. She feels that these medications continue to be helpful. ALLERGIES: No known drug allergies. CURRENT MEDICATIONS: Aspirin 81 mg, Fiorinal for headaches, Depakote DR 250 mg t.i.d., ibuprofen p.r.n., Synthroid 5 mcg daily, morphine sulfate 15 mg, Zofran 4 mg p.o. p.r.n. nausea, oxycodone 7.5 mg q.i.d., clonazepam 10 mg t.i.d., Bactrim-DS in the past. PAIN CLINIC ASSESSMENT AND PQRS: 1. The patient has history of left knee osteoarthritis. She has spkg-ul-uuaw discomfort. She is not being treated for rheumatoid arthritis. 2. Height 5 feet 5 inches, weight 225 pounds, BMI is 37. 3. Vital signs: Blood pressure 170/82, heart rate 63, respiratory rate 18, room air saturation 99%, temperature 98.4. 4. Pain intensity 11/14. 5. Fall history: The patient has not fallen in the last 3 months. 6. Blood thinner. The patient is not on a blood thinning medication. 7. Opioids greater than 6 weeks. The patient received medication from one source, pain clinic. 8. Risk assessment tool, low for opioids. 9. Functional assessment tool 35/70. 10. Recreational drug use: The patient denies. 11. Tobacco: The patient denies use of tobacco. 12. Alcohol. The patient denies use of alcoholic beverages. PHYSICAL EXAMINATION: GENERAL: The patient is a well-developed, well-nourished white female. Appears her stated age. She is alert and oriented x 3. [place] [address] PAIN MANAGEMENT CONSULTATION Name: VANESSA SMITH Room: [facility]#: [id number] Admission: 06/06/19 Attend Phys: Mackenzie Rob MD Discharge: Date of : 55 Report #: [id number] is fluent. HEENT: Normocephalic, atraumatic. Extraocular eye muscles intact. The patient has a disconjugate gaze. She has some swelling and has had some problems with "double chin" after the radiation. This was secondary to lymphoma. CHEST: Generally clear to auscultation. EXTREMITIES: The patient has pain and discomfort in the right neck. She has some right shoulder pain in the upper area. Muscle strength judged to be 4/5 for the major muscle groups in the upper extremity. The patient has muscle strength in the lower extremities as 5/5 for the major muscle groups in the lower extremity. The patient does have some pain in her knee, left as well as right. IMPRESSION: 1. Chronic knee pain with nnls-qk-khnr pain. 2. Squamous cell carcinoma, status post radiation and cisplatin 35 radiation treatments, lymphoma in the neck. 3. History of stage 2A uterine cancer. 4. Chronic knee pain. 5. Morbid obesity. 6. Lumbar spondylosis with history of radiculopathy. 7. Opioid use. The patient is being treated with complex medical management using opioids to help control the pain. 8. Chronic intractable pain. RECOMMENDATIONS: We discussed treatment options with the patient. At this juncture, we will continue with her medications. She is aware that opioid medications can become less effective because of tolerance. She feels that her medications are beneficial. She has returned today with the hopes of renewing her medications. She keeps her medications in a guarded area. She is using them as prescribed. The patient will continue with morphine sulfate 15 mg 1 p.o. t.i.d. She will also use oxycodone 7.5 mg one p.o. q.4-6 hours to help control the pain. She will call us if she has any complications with her medications. We would like to thank you for letting us participate in her care. We hope she continues to improve. By: [id number]. Marco Rob MD /nt
== END ==
LOC: M.PC 04:29
DX: M25.562 Pain in left knee (principal); G89.29 Other chronic pain; E66.09 Other obesity due to excess calories; M47.26 Other spondylosis with radiculopathy, lumbar region; F11.20 Opioid dependence, uncomplicated; G89.4 Chronic pain syndrome

== ENCOUNTER → 2019-08-29 | Outpatient (CLI) | payer BC ==
--- NOTE | 2019-09-06 08:25 | PAINCON ---
[address] [address] PAIN MANAGEMENT CONSULTATION Name: VANESSA SMITH Room: [facility]#: [id number] Admission: 08/29/19 Attend Phys: Mackenzie Rob MD Discharge: Date of : 55 Report #: [id number] THIS REPORT FOR: //name// cc: Guy Hopper MD, David L. MD ~ THIS REPORT FOR: //name// CC: Guy Rob DATE OF SERVICE: 08/29/2019 CHIEF COMPLAINT: Here for medication renewal and still having pain in the back and knee. HISTORY: The patient is a 63-year-old female who has been followed in the Pain Clinic because of chronic pain. She has continued to have pain and discomfort in her low back area. She also complains of pain in the knee. She states that she does have a fistula and a feeding tube, which has still been problematic. She is considering surgery or surgical evaluation for this problem. Because of the COVID-19 situation, she is not able to undergo surgery at this juncture. She rates her pain as 5/10. Activity such as walking, sitting, standing, bending, and lifting can exacerbate her discomfort. She continues to work in [place], [place]. She has relocated from [place]. Feels that her cancer at this point is controlled. ALLERGIES: No known drug allergies. CURRENT MEDICATIONS: Aspirin 81 mg, Fiorinal for headaches, Depakote DR 250 mg t.i.d., ibuprofen, Synthroid 50 mcg daily, morphine sulfate 15 mg, Zofran 4 mg p.r.n. nausea, oxycodone 7.5 mg q.i.d., clonazepam 10 mg t.i.d., and Bactrim-DS has been used in the past. PAIN CLINIC ASSESSMENT AND PQRS: 1. The patient has history of left knee osteoarthritis. She has mllm-jc-ezdr discomfort. She is not being treated for rheumatoid arthritis. 2. Height 5 feet 5 inches, weight 205 pounds, BMI is 34. 3. Vital signs: Blood pressure 159/107, respiratory rate 16, heart rate 44, saturation is 99, and temperature 97.8. 4. Pain intensity 5/10. 5. Fall history: The patient has not fallen in the last 3 months. 6. Blood thinner. The patient is not on a blood thinning medication. 7. Opioids greater than 6 weeks. The patient received medication from one source the Pain Clinic. 8. Functional assessment tool, reviewed . 9. Risk assessment tool, [place] [address] PAIN MANAGEMENT CONSULTATION Name: VANESSA SMITH [id number] Admission: 08/29/19 Attend Phys: Mackenzie Rob MD Discharge: Date of : 55 Report #: [id number] 10. Recreational drug use: The patient denies. 11. Tobacco: The patient denies. 12. Alcohol: The patient denies. PHYSICAL EXAMINATION: GENERAL: The patient is a well-developed, well-nourished white female. Appears her stated age. She is alert and oriented x 3. She is somewhat obese. HEENT: Normocephalic, atraumatic. Extraocular eye muscles intact. The patient does have disconjugate gaze. Has noted some improvement in the swelling under her chin. CHEST: Generally clear to auscultation. EXTREMITIES: Upper extremity muscle strength 4/5 for the major muscle groups in the upper extremity. Lower extremity muscle strength judged to be 5/5 for the major muscle groups in the lower extremity. The patient has some knee pain left as well as right. Has pqim-so-kqus pain in the left knee. IMPRESSION: 1. Chronic knee pain with xeft-hw-sogg pain on the left. 2. Squamous cell carcinoma, status post radiation and cisplatin 35 treatments of radiation for lymphoma in the neck. 3. History of stage 2A uterine cancer. 4. Chronic knee pain. 5. Morbid obesity. 6. ____ spondylosis with history of radiculopathy. 7. Opioid use to help control pain. 8. Chronic intractable pain. RECOMMENDATIONS: We discussed treatment options with the patient. At this juncture, we will continue with her medications. She feels the medications continue to be helpful. She is having pain and the pain is more problematic because of the mouj-cd-zmly nature of the pain and discomfort. She also has a fistula where she had a feeding tube in placed. At this juncture, this is not healing the way that she thought it should. Possibility of surgery remains an option. She is unable to undergo surgery because of COVID-19. She has returned today and would like her medications renewed. She continues to be gainfully employed. A script for her medications of Percocet 7.5 mg 1 p.o. q.i.d. has been provided. Three months of medication has been written. The patient will also continue with MS Contin 15 mg 1 p.o. t.i.d. She will call us if she has any problems with her medications. She underwent her last treatment of chemotherapy 06/10/2019. She is going to be followed up by CT scans of her neck each 6 months. She will also follow up with an ENT for scoping in 3 [place] [address] PAIN MANAGEMENT CONSULTATION Name: VANESSA SMITH [id number] Admission: 08/29/19 Attend Phys: Mackenzie Rob MD Discharge: Date of : 55 Report #: [id number] We would like to thank you for letting us participate in her care. We hope she continues to improve. <ELECTRONICALLY SIGNED> By: Mackenzie Rob MD 09/06/19 0825 [id number] [id number]. Marco Rob MD /nt
== END ==
LOC: M.PC 08:10
DX: M25.561 Pain in right knee (principal); M25.562 Pain in left knee; C55 Malignant neoplasm of uterus, part unspecified; G89.4 Chronic pain syndrome; Z79.899 Other long term (current) drug therapy

== ENCOUNTER → 2019-11-21 | Outpatient (CLI) | payer BC ==
[~2019-11-21] MED LIST changes: +BISOPROLOL FUMA10 MG PO; +CHOLECALCIFEROL PO; +LEVO-T75 MCG PO
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
== END ==
LOC: M.PC 03:56
PROVIDERS: ATTEND Anesthesiology Pain Medicine
DX: M54.5 Low back pain (principal); M25.562 Pain in left knee; G89.29 Other chronic pain; E66.01 Morbid (severe) obesity due to excess calories; F11.20 Opioid dependence, uncomplicated; Z87.39 Personal history of other diseases of the musculoskeletal system and connective tissue; Z85.42 Personal history of malignant neoplasm of other parts of uterus; Z98.890 Other specified postprocedural states; Z79.899 Other long term (current) drug therapy

== ENCOUNTER → 2020-01-15 | Outpatient (CLI) | payer BC | LOC: M.RAD 16:19 | PROVIDERS: ATTEND Internal Medicine | DX: C54.1 Malignant neoplasm of endometrium (principal); R91.8 Other nonspecific abnormal finding of lung field; J90 Pleural effusion, not elsewhere classified; I10 Essential (primary) hypertension; E03.9 Hypothyroidism, unspecified; E11.9 Type 2 diabetes mellitus without complications; M40.294 Other kyphosis, thoracic region ==

== ENCOUNTER 2020-01-23 16:14 | Emergency (ER) | payer OTHER, BC ==
[~2020-01-23] VITALS: Ht 165.1 cm; Wt 74.4 kg
[2020-01-23 18:16] VITALS: BP 179/95
== END 2020-01-23 18:17 | disposition home or self-care (01) ==
LOC: M.ERS 16:14
DX: S00.12XA Contusion of left eyelid and periocular area, initial encounter (principal); I10 Essential (primary) hypertension; Z90.710 Acquired absence of both cervix and uterus; Z85.42 Personal history of malignant neoplasm of other parts of uterus; W01.0XXA Fall on same level from slipping, tripping and stumbling without subsequent striking against object, initial encounter; Y93.89 Activity, other specified; Y92.89 Other specified places as the place of occurrence of the external cause; Y99.0 Civilian activity done for income or pay

== ENCOUNTER → 2020-02-13 | Outpatient (CLI) | payer BC ==
--- NOTE | 2020-02-13 15:40 | PAINCON ---
[address] [address] PAIN MANAGEMENT CONSULTATION Name: VANESSA SMITH Room: [facility] Josep.#: [id number] Admission: 02/13/20 Attend Phys: Mackenzie Rob MD Discharge: Date of : 55 Report #: [id number] THIS REPORT FOR: //name// cc: Yaneth Looney MD, Lin W. MD ~ THIS REPORT FOR: //name// CC: Guy Rob DATE OF SERVICE: 02/13/2020 CHIEF COMPLAINT: "I fell at work and hit my head. I am okay now." HISTORY: The patient is a 64-year-old female who has been followed in the pain clinic because of chronic pain. She has chronic left knee pain as well as low back pain. She has been followed in the pain clinic because of these chronic problems. She continues to work. She states she was at work and walked through a doorway. They were taking workers temperature. She pivoted and turned around and tripped in the doorway. She fell forward and hit her head on a door with a bar midway across it. She had a significant knot in that area. She has had a blackening of her eye, which still has some signs of a black eye at this juncture. She was found to have pneumonia. She was treated with pneumonia. She states that the pneumonia was a result of chronic aspiration. She was given antibiotics and feels that things have resolved reasonably. She states that she saw her oncologist who feels that her lungs are working relatively well. She has returned today for renewal of her medications. ALLERGIES: No known drug allergies. CURRENT MEDICATIONS: Aspirin 81 mg, Fiorinal for headaches, Depakote DR 250 mg t.i.d., ibuprofen, Synthroid 50 mcg daily, morphine sulfate 15 mg, Zoloft 4 mg for nausea, oxycodone 7.5 mg q.i.d., and clonazepam 10 mg t.i.d. PAIN CLINIC ASSESSMENT AND PQRS: 1. The patient does have a history of left knee osteoarthritis. She has dcst-hl-[id number] discomfort. She is not being treated for rheumatoid arthritis. 2. Height 5 feet 5 inches, weight 164 pounds, BMI is 27.3. 3. Vital signs: Blood pressure 146/80, heart rate 55, respiratory rate 16, room air saturation 96%, and temperature 97.8. 4. Pain intensity 3/10. 5. Fall history: The patient fell about a month ago. 6. Blood thinner. The patient is not on a blood thinning medication. 7. Opioids. The patient has received opioids from one source the pain clinic. 8. Risk assessment tool, low [place] [address] PAIN MANAGEMENT CONSULTATION Name: VANESSA SMITH [id number] Admission: 02/13/20 Attend Phys: Mackenzie Rob MD Discharge: Date of : 55 Report #: [id number] 9. Functional assessment tool reviewed. 10. Recreational drug use. The patient denies. 11. Tobacco: The patient denies. 12. Alcohol: The patient does not drink alcohol. PHYSICAL EXAMINATION: GENERAL: The patient is a well-developed, well-nourished white female. Appears her stated age. She is alert and oriented x 3. Her affect is appropriate. Speech is fluent. HEENT: Normocephalic, atraumatic. Extraocular eye muscles indicate some disconjugate gaze regarding her eyes. The patient is wearing a mask. CHEST: Generally clear. The patient complains of some discomfort in the abdominal area. She has had a closure of her feeding tube. LUNGS: The patient does cough and ____ slightly congested, but clears easily. MUSCULOSKELETAL: Upper extremity muscle strength judged to be 5-/5 for the major muscle groups in the upper extremity. Lower extremity muscle strength judged to be 5-/5. The patient has pain in the left as well as the right knee, left more problematic. IMPRESSION: 1. Chronic knee pain with [id number]-[id number] involvement on the left knee. 2. 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 3. History of stage 2 uterine cancer. 4. Chronic knee pain. 5. Morbid obesity, down greater than 32 pounds. 6. Spondylosis, history of lumbar spine. 7. Opioid use to help control pain. 8. Chronic intractable pain. 9. Resolving left forehead trauma with black eyes. RECOMMENDATIONS: We discussed treatment options with the patient. At this juncture, we will continue with her medications. She feels medications are helpful. A script for her medications have been rewritten. The patient has a knot over her left eye. She feels that it is still somewhat enlarged. The trauma occurred about a month and a half ago. Hopefully, this will continue to resolve. The patient would like to continue with her medications. She feels that her pneumonia is improving. She will call us if she has any concerns. A script for her medications have been rewritten. She will continue with oxycodone 7.5 mg 1 p.o. 4 times daily. She will also continue with morphine extended release 1 p.[place]. [place] [address] PAIN MANAGEMENT CONSULTATION Name: VANESSA SMITH Room: [facility]#: [id number] Admission: 02/13/20 Attend Phys: Mackenzie Rob MD Discharge: Date of : 55 Report #: [id number] We would like to thank you for letting us participate in her care. We hope she continues to improve. <ELECTRONICALLY SIGNED> By: Mackenzie Rob MD 02/13/20 [id number]. Marco Rob MD /nt
== END ==
LOC: M.PC 08:00
PROVIDERS: ATTEND Anesthesiology Pain Medicine
DX: M25.562 Pain in left knee (principal); G89.29 Other chronic pain; E66.01 Morbid (severe) obesity due to excess calories; F11.20 Opioid dependence, uncomplicated; S09.90XD Unspecified injury of head, subsequent encounter; Z87.39 Personal history of other diseases of the musculoskeletal system and connective tissue; Z85.42 Personal history of malignant neoplasm of other parts of uterus; X58.XXXD Exposure to other specified factors, subsequent encounter; Z79.899 Other long term (current) drug therapy